=== PATIENT | female | born 1965 | race Two or more races ===

== ENCOUNTER → 2022-12-23 09:58 | Outpatient (BNVA) | payer OTHER, SELFPAY | PROVIDERS: PCP Pediatrics; Visit Provider Internal Medicine Rheumatology | DX: M25.561 Pain in right knee (principal); M25.562 Pain in left knee; M19.041 Primary osteoarthritis, right hand; M79.641 Pain in right hand; M19.042 Primary osteoarthritis, left hand; M79.642 Pain in left hand; M79.7 Fibromyalgia | CPT/HCPCS: 99202 ==

== ENCOUNTER 2022-12-23 11:38 | Outpatient (REF) | payer OTHER, SELFPAY ==
--- NOTE | ~2022-12-23 | XR_ITS ---
EXAMINATION: XR knee RT 3V, XR knee LT 3V CLINICAL INFORMATION: Reason for Exam M25.561 - Pain in right knee COMPARISON: None available at the time of this dictation. TECHNIQUE: frontal, lateral, tunnel and patella sunrise views FINDINGS: BONES: No fracture or dislocation is present. JOINTS: Mild Narrowing of joint spaces suggest degenerative osteoarthritis. SOFT TISSUE: Normal XR/XR knee RT 3V IMPRESSION: Mild bilateral tricompartment degenerative osteoarthritis. No knee joint effusions.
--- NOTE | ~2022-12-23 | XR_ITS ---
EXAMINATION: XR knee RT 3V, XR knee LT 3V CLINICAL INFORMATION: Reason for Exam M25.561 - Pain in right knee COMPARISON: None available at the time of this dictation. TECHNIQUE: frontal, lateral, tunnel and patella sunrise views FINDINGS: BONES: No fracture or dislocation is present. JOINTS: Mild Narrowing of joint spaces suggest degenerative osteoarthritis. SOFT TISSUE: Normal XR/XR knee LT 3V IMPRESSION: Mild bilateral tricompartment degenerative osteoarthritis. No knee joint effusions.
[2022-12-23 14:00] LABS: C Reactive Protein 0.48 mg/dL (< or = 0.50)
[2022-12-23 14:06] LABS: Thyroid Stimulating Hormone 1.24 uIU/mL (0.32-4.0)
[2022-12-23 14:22] LABS: Erythrocyte Sedimentation Rate 6 MM/HR (0-20)
== END 2022-12-23 11:39 | disposition home or self-care (01) ==
LOC: HO.10HDL 11:38
PROVIDERS: Visit Provider Internal Medicine Rheumatology
DX: M25.561 Pain in right knee (principal); M25.562 Pain in left knee; M19.041 Primary osteoarthritis, right hand; M19.042 Primary osteoarthritis, left hand; M79.7 Fibromyalgia
CPT/HCPCS: 36415; 73130; 73562; 84443; 85652; 86140

== ENCOUNTER 2023-02-21 10:00 | Outpatient (RCR) | payer OTHER, SELFPAY ==
--- NOTE | 2023-01-17 14:33 | MHC.PT.EP ---
[facility] [place] Office [place] Office [place] Office [address] [phone] F: [phone] F: [phone] F: [phone] F: [phone] Physical Therapy Plan of Care Date of Evaluation: Date of Surgery: Diagnosis: DOMINIC KNEE PAIN Assessment: 57 YO FEMALE REF TO PT WITH DOMINIC KNEE PAIN- SHE NOTES SHE IS BEING PROACTIVE TO ADDRESS KNEE STRENGTH, LEARN APPROPRIATE EXER, AND PREVENT FUTURE KNEE PROBLEMS. 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 OBJECTIVE FINDINGS: DECR HIP FLEXIB Lt > Rt, (+) LATERAL RETINACUALR TISSUE TENSION W LATERAL DRIFT, STRENGTH DEFICITS IN QUADS/ PROX LEs /LUMBOPELVIC REGION, AND PAIN W PALP LATERAL Jt LINE DOMINIC KNEES. FUNCTIONALLY, THE Pt HAS DECR CHRIS TO STAIR NAVIGATION, TRANSITIONAL MVMTS, BENDING. SQUATTING, KNEELING -> STANDING UP, AND ALTERED SLEEP DUE TO KNEE PAIN. THE Pt WOULD BENEFIT FROM PT TO DEV A HEP, ADDRESS FLEXIBILITY AND MORE EFFICIENT GAIT MECH ON LEVEL GROUND AND STAIRS, WELL FLOOT <-> STAND MECHANICS. Frequency and Duration: The patient will be seen 2 x WK x 6 WKS Short Term Goals: *Pt INDEP SELF CORRECT POSTURE AND DEMON WFL SQUAT MECH *DOMINIC KNEE PAIN DECR TO 2-3/10 *INCR FLEXIB IN PSOAS/ CALF MM TO IMPROVE EFFICIENCY OF GAIT ON LEVEL AND STAIRS Cylinder Machine Operator Goals: Pt INDEP W HEP PROGRESSION AND SELF-SX MGMT STRATEGIES Pt RESUME REG ADLs EVIDENT W IMPROVED LEFI SCORE (AT EVAL 46/80) Pt INCR DOMINIC LEs STRENGTH BY 1 GRADE *Pt DEMON INDEP KNEELING<-> STANDING MECHANICS Treatment Plan: Modalities to reduce pain, spasms and effusion. Manual therapy to restore motion and function. Therapeutic exercise to improve strength and flexibility. Neuromuscular re-education for posture and balance. Therapeutic activities to return to functional activities of daily living. Electronically signed by: ELDON LOFTON,PT Please sign and return to therapist. Thank you for your referral.
--- NOTE | 2023-04-08 14:11 | MHC.PT.DC ---
[facility] [place] Office [place] Office [place] [facility] [address] 140 [facility] [phone] F: [phone] F: [phone] F: [phone] F: [phone] Physical Therapy Discharge Report Diagnosis: DOMINIC KNEE PAIN Date of Surgery: Date of Evaluation: 01/17/23 Date of Discharge: 04/08/23 Treatments to Date: 7 Cancellations to Date: 4 No Shows to Date: 0 Discharge Status: Improved Function Independent with HEP Patient Elected to Stop Discharge Summary: THE Pt HAS PROGRESSED IN PT-> HER LUMBOPELVIC/ PROX LEs STRENGTH HAS IMPROVED AND HER FUNCT MOB CHRIS INCREASED- THE Pt CANC HER LAST FEW APPTS AND THEREFORE A FORMAL REASSESSMENT WAS NOT PERF- SHE HAS A THOROUGH HEP. Electronically signed by: ELDON LOFTON,PT Please sign and return to therapist. Thank you for your referral.
== END 2023-04-08 14:12 | disposition home or self-care (01) ==
LOC: HO.PT 10:00
PROVIDERS: PCP Internal Medicine; Visit Provider Internal Medicine Rheumatology
DX: M25.561 Pain in right knee (principal); M25.562 Pain in left knee
CPT/HCPCS: 97110; 97140; 97162

== ENCOUNTER 2023-12-07 12:43 | Outpatient (REF) | payer OTHER, SELFPAY ==
[2023-12-07 14:37] LABS: MANUAL DIFF FLAG NO
[2023-12-07 15:22] LABS: Basophils Percent Auto 0.5 % (0-2); Eosinophils Absolute Auto 0.1 X10*3/uL (0.0-0.4); Eosinophils Percent Auto 1.5 % (0-4); Hematocrit 41.3 % (37.0-47.0); Hemoglobin 13.5 g/dl (12.0-16.0); Imm Gran Abs Auto 0.01 X10*3/uL (0.00-0.03); Imm Gran Pct Auto 0.2 % (0.0-0.4); Lymphocytes Absolute Auto 1.2 X10*3/uL (1.2-4.9); Mean Corpuscular HGB Conc 32.7 g/dl (31.0-35.0); Mean Corpuscular Hemoglobin 29.5 pg (27.0-33.0); Mean Corpuscular Volume 90.2 fL (80.0-98.0); Monocytes Absolute Auto 0.3 X10*3/uL (0.1-1.2); Monocytes Percent Auto 5.7 % (2-11); Neutrophils Absolute Auto 4.3 x10*3/uL (2.0-8.3); Neutrophils Percent Auto 72.1 % (45-73); Platelet Count 218 X10*3/uL (160-400); Red Blood Count 4.58 X10*6/uL (4.20-5.50); Red Cell Distribution Width 12.9 % (11.0-16.0)
[2023-12-07 15:56] LABS: Alanine Aminotransferase 18 U/L (0-31); Albumin Level 4.2 g/dL (3.5-5.0); Alkaline Phosphatase 96 U/L (39-117); Anion Gap 12 (12-20); Aspartate Amino Transferase 19 U/L (5-31); Bilirubin Total 0.5 mg/dL (0.0-1.0); Blood Urea Nitrogen 15 mg/dL (9-16); C Reactive Protein 0.56 mg/dL (< or = 0.50); Calcium 9.7 mg/dL (8.4-10.2); Carbon Dioxide 27 mmol/L (22-29); Chloride 106 mmol/L (96-108); Estimated Glomerular Filt Rate > 60; Glucose Random 95 mg/dL (60-115); Potassium 3.7 mmol/L (3.3-5.1); Sodium 141 mmol/L (135-145); Total Protein 7.2 g/dL (6.5-8.0)
[2023-12-07 16:00] LABS: Erythrocyte Sedimentation Rate 6 MM/HR (0-20); Rheumatoid Factor < 13.0 IU/mL (<15.0)
[2023-12-08 04:17] LABS: HBS Num1 154.83 mIU/mL (0-7.99); HBc Num1 0.13 S/CO (0.00-0.79); HBsAGNum1 0.25 S/CO (0.00-0.99); Hepatitis A Antibody IgM 0.17 Index (0-0.79); Hepatitis B Core Antibody Nonreactive (Nonreactive); Hepatitis B Surface Antigen Negative (Negative); ~HepC Num1 0.11 S/CO (0.00-0.79); ~Hepatitis A Antibody IgM Nonreactive (Nonreactive); ~Hepatitis B Surface Antibody REACTIVE (Nonreactive); ~Hepatitis C Antibody Nonreactive (Nonreactive)
[2023-12-09 12:38] LABS: Prot Elec - Albumin 4.3 g/dL (3.8-4.8); Prot Elec - Alpha1 0.3 g/dL (0.2-0.3); Prot Elec - Alpha2 0.6 g/dL (0.5-0.9); Prot Elec - Beta 1 0.4 g/dL (0.4-0.6); Prot Elec - Beta 2 0.4 g/dL (0.2-0.5)
[2023-12-09 15:43] LABS: Cyclic Citrullinated Peptide <16 UNITS
[2023-12-10 17:54] LABS: TS Negative Control Passed; TS Panel A 0; TS Panel B 0; TS Positive Control Passed; TSpotTB Negative (Negative)
[2023-12-11 17:29] LABS: HLA B27 Negative (Negative)
[2023-12-12 15:58] LABS: IgA 177 mg/dL (47-310); IgG 1200 mg/dL (600-1640); IgM 69 mg/dL (50-300)
== END 2023-12-07 12:44 | disposition home or self-care (01) ==
LOC: HO.LAB 12:43
PROVIDERS: PCP Internal Medicine; Visit Provider Student in an Organized Health Care Education/Training Program
DX: M06.09 Rheumatoid arthritis without rheumatoid factor, multiple sites (principal); M45.9 Ankylosing spondylitis of unspecified sites in spine; Z11.59 Encounter for screening for other viral diseases; Z11.7 Encounter for testing for latent tuberculosis infection; Z79.631 Long term (current) use of antimetabolite agent
CPT/HCPCS: 36415; 80053; 82784; 84165; 85025; 85652; 86140; 86200; 86334; 86431; 86481; 86704; 86706; 86709; 86803; 86812; 87340; 99212

== ENCOUNTER 2023-12-07 12:43 | Outpatient (AMB) | payer OTHER, SELFPAY ==
--- NOTE | 2023-12-07 13:26 | MHC.OFFVIS ---
Vital Signs 12/07/23 13:27 Height 5 ft 5 in Weight 208 lb 8.917 oz BMI 34.7 BP 126/74 Blood Pressure Location Rt brachial Position Sitting Pulse 73 Pulse Source Pulse Oximeter Pulse Oximetry (%) 98 Oxygen Delivery Method Room Air Intake Visit Reasons: Knee OA/CM Intake Note: Reports bl hand pain and swelling. Some ankle swelling Teletype Operator Required: No Accompanied by: Self / Same As Patient Allergies epinephrine Allergy (Intermediate, Verified 12/07/23 13:34) increased heart rate Sulfa (Sulfonamide Antibiotics) Allergy (Intermediate, Verified 12/07/23 13:34) Rash Medication List - Last Reconciled 12/07/23 by Cezar Bernardo MD ibuprofen 200 mg PO Q6H PRN HPI Comments Details: 58-year-old female who used to follow-up adequately with Dr. Coy for evaluation of possible rheumatoid arthritis. She has a strong family history of rheumatoid arthritis in her mother and sister. She states that over the last year she has been having more frequent and significant swelling and pain of her hands and ankles. Morning stiffness of her hands lasts until dinnertime. She takes ibuprofen 400 mg twice a week with some relief. She denies having any knee pain. It did improve with physical therapy. She denies any skin rashes. She has gained some weight over the last year. Most recent history by Dr. Coy's 12/2022: The patient presents for evaluation of multiple areas of pain. I had actually seen her about 13 years ago with major complaint of fatigue. There were joint pains at the time so overall the picture looked like she could have some fibromyalgia. She has had since then continued symptoms although they seem to be worse in the last year or 2. Areas of pain include the neck, shoulders, hands, lower back, lateral hips, knees and ankles. She thinks the hands are occasionally swollen although do not remain swollen. She also notes occasional ankle swelling. Since I had last seen her she has gained about 27 lb. She admits she has trouble losing weight although she has been trying to diet. She had some blood work last year that did not really show any significant abnormalities. She does take [id number]-wkg-ikoaoxe ibuprofen, 200 mg to 400 mg daily although not on most days. She has difficulty getting up out of a chair because of knee pain. She has difficulty going up or down stairs. [facility] Medical History (Updated 12/07/23 @ 14:18 by Cezar Bernardo MD) Seasonal rhinitis Seasonal allergic conjunctivitis Thyroid nodule Obesity Fatigue Bilateral leg edema Surgical History H/O mammogram Family History Mother Arthritis Father CVA (cerebral vascular accident) Maternal Grandmother Diabetes Sister Rheumatoid arthritis Brother Rheumatoid arthritis Social History Household Members: Spouse Household Members Other:: Daughter Alcohol intake: current Alcohol intake frequency: a few times a week Alcohol type: wine Patient Tobacco Use Status: Former Tobacco user Current occupational status: employed 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 Female Reproductive History Menstrual Total pregnancies: 2 Number of Living Children: 2 Review of Systems Const Reports weight gain Musc Reports arthralgias, Reports joint swelling and Reports stiffness Skin/Breast Denies rash Physical Exam Vital Signs: Last Vital Signs Pulse 73 12/07/23 13:27 BP 126/74 12/07/23 13:27 Pulse Ox 98 12/07/23 13:27 Oxygen Delivery Method Room Air 12/07/23 13:27 BMI result Body Mass Index 34.7 Const General: cooperative, healthy appearing and comfortable Nutritional Appearance: obese Orientation/consciousness: patient oriented x3 Limitations: no limitations HEENT Head: Yes normocephalic and Yes atraumatic Mouth: moist mucous membranes Resp Effort & Inspection: normal respiratory effort and able to speak in complete sentences Auscultation: clear to auscultation bilaterally Cardio Rate: regular rate Rhythm: regular rhythm Skin General skin exam: no rashes or lesions noted Neuro General: patient oriented x3 Extrem Other: No wrist tenderness with full flexion and extension Significant bilateral hand swelling Bilateral diffuse extensor tendon tenderness Bilateral diffuse flexor tendon tenderness Bilateral diffuse 1st through 5th MCP, PIP and DIP tenderness Bilateral ankle swelling and tenderness Bilateral 2nd through 5th MTP tenderness No knee pain with full flexion-extension Normal nailfold capillaroscopy Normal range of motion of elbows and shoulders without pain Results Reviewed Results Reviewed: Lab work from [place]: February 2021: Hemoglobin 14.1, creatinine 0.65, transaminases normal the the October 2021: Rheumatoid factor negative, Lyme disease antibody negative, CRP 0.57, ESR 10, uric acid 4.7, MARCO ANTONIO negative Assessment & Plan Assessment & Plan (1) Rheumatoid arthritis: Code(s): M06.9 - Rheumatoid arthritis, unspecified Category: Medical Qualifiers: Rheumatoid arthritis location: multiple sites Rheumatoid factor presence: without rheumatoid factor Qualified Code(s): M06.09 - Rheumatoid arthritis without rheumatoid factor, multiple sites Plan: This is a 58-year-old female who used to follow-up periodically with Dr. Coy due to strong family history of RA. Over the last year patient has been having more pain, swelling and stiffness of her hands, ankles. On exam she has few synovitis. She has developed inflammatory arthritis, likely seronegative RA, however we will need to check anti CCP antibody. Discussed RA diagnosis and its management. Check labs today Start methotrexate 15 mg weekly for 2 weeks then 20 mg once weekly Start folic acid 1 mg daily. 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 Patient consumes 1 or 2 alcoholic beverages weekly Plan I spent 30 minutes reviewing patient's chart, evaluating patient, ordering diagnostic workup, counseling patient and documenting in the chart Orders: Orders Complete Blood Count Auto Diff Today M06.9 - Rheumatoid arthritis, unspecified C Reactive Protein Today M06.9 - Rheumatoid arthritis, unspecified Erythrocyte Sedimentation Rate Today M06.9 - Rheumatoid arthritis, unspecified HLA B27 Today M45.9 - Ankylosing spondylitis of unspecified sites in spine Complete Blood Count Auto Diff 2 Months Z79.631 - intermediate (current) use of antimetabolite agent C Reactive Protein 2 Months Z79.631 - intermediate (current) use of antimetabolite agent Erythrocyte Sedimentation Rate 2 Months Z79.631 - intermediate (current) use of antimetabolite agent Comprehensive Met. Panel Today M06.9 - Rheumatoid arthritis, unspecified Immunofixation Pnl, Serum Today M06.9 - Rheumatoid arthritis, unspecified Protein Electrophoresis, Serum Today M06.9 - Rheumatoid arthritis, unspecified Hepatitis A,B,C Profile Today Z11.59 - Encounter for screening for other viral diseases T Spot TB Today Z11.7 - Encounter for testing for latent tuberculosis infection Cyclic Citrullinated Peptide Today M06.9 - Rheumatoid arthritis, unspecified Rheumatoid Factor Today M06.9 - Rheumatoid arthritis, unspecified Comprehensive Met. 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
[2023-12-07 13:27] VITALS: BP 126/74; PULSE 73; O2SAT 98; BMI 34.7
== END 2023-12-07 14:13 | disposition home or self-care (01) ==
LOC: HO.RHE 12:43
PROVIDERS: PCP Internal Medicine; Visit Provider Student in an Organized Health Care Education/Training Program
DX: M06.09 Rheumatoid arthritis without rheumatoid factor, multiple sites (principal); Z79.631 Long term (current) use of antimetabolite agent
CPT/HCPCS: 99214

== ENCOUNTER 2024-02-06 14:30 | Outpatient (AMB) | payer OTHER, SELFPAY ==
[2024-02-06 14:43] VITALS: BP 120/68; PULSE 78; O2SAT 98; BMI 34.0
--- NOTE | 2024-02-06 14:43 | A.OFFVIS_ITS ---
Vital Signs 02/06/24 14:43 Height 5 ft 5 in Weight 204 lb 5.896 oz BMI 34.0 BP 120/68 Blood Pressure Location Lt brachial Position Sitting Pulse 78 Pulse Source Pulse Oximeter Pulse Oximetry (%) 98 Oxygen Delivery Method Room Air Intake Visit Reasons: RA/CM Intake Note: Patient is here today for follow up on RA. She was last seen on 12/07/2023. She is inqiring as if she should be taking Phentermene. Allergies epinephrine Allergy (Intermediate, Verified 02/06/24 14:49) increased heart rate Sulfa (Sulfonamide Antibiotics) Allergy (Intermediate, Verified 02/06/24 14:49) Rash Medication List - Last Reconciled 02/06/24 by Cezar Bernardo MD ibuprofen 200 mg PO Q6H PRN HPI Comments Details: 58-year-old female with newly diagnosed seronegative RA returns for follow-up. After last visit I prescribed methotrexate and folic acid. Patient looked up the list of side effects of methotrexate and decided not to take it. She states that she is on the medicine person. She states that she feels the same, continues to have morning stiffness lasting 1 hour, she takes Tylenol Arthritis daily. She is against using medications. She would like to try natural treatments Most recent history by Dr. Coy's 12/2022: The patient presents for evaluation of multiple areas of pain. I had actually seen her about 13 years ago with major complaint of fatigue. There were joint pains at the time so overall the picture looked like she could have some fibromyalgia. She has had since then continued symptoms although they seem to be worse in the last year or 2. Areas of pain include the neck, shoulders, hands, lower back, lateral hips, knees and ankles. She thinks the hands are occasionally swollen although do not remain swollen. She also notes occasional ankle swelling. Since I had last seen her she has gained about 27 lb. She admits she has trouble losing weight although she has been trying to diet. She had some blood work last year that did not really show any significant abnormalities. She does take kmoa-joz-gabyvlx ibuprofen, 200 mg to 400 mg daily although not on most days. She has difficulty getting up out of a chair because of knee pain. She has difficulty going up or down stairs. 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 Female Reproductive History Menstrual Total pregnancies: 2 Number of Living Children: 2 Review of Systems Const Reports weight gain Musc Reports arthralgias, Reports joint swelling and Reports stiffness Skin/Breast Denies rash Physical Exam Vital Signs: Last Vital Signs Pulse 78 02/06/24 14:43 BP 120/68 02/06/24 14:43 Pulse Ox 98 02/06/24 14:43 Oxygen Delivery Method Room Air 02/06/24 14:43 BMI result Body Mass Index 34.0 Const General: cooperative, healthy appearing and comfortable Nutritional Appearance: obese Orientation/consciousness: patient oriented x3 Limitations: no limitations HEENT Head: Yes normocephalic and Yes atraumatic Mouth: moist mucous membranes Resp Effort & Inspection: normal respiratory effort and able to speak in complete sentences Skin General skin exam: no rashes or lesions noted Neuro General: patient oriented x3 Extrem Other: Bilateral hand and wrist puffiness but swelling is overall less than last visit Assessment & Plan Assessment & Plan (1) Rheumatoid arthritis: Comment: -ve RF -ve CCP dx 11/2023 refused MTX Code(s): M06.9 - Rheumatoid arthritis, unspecified Category: Medical Qualifiers: Rheumatoid arthritis location: multiple sites Rheumatoid factor presence: without rheumatoid factor Qualified Code(s): M06.09 - Rheumatoid arthritis without rheumatoid factor, multiple sites Plan: This is a 58-year-old female with new onset seronegative RA presents for follow- up. After last visit I had prescribed methotrexate. Patient looked at the list of side effects and decided not to take it. She continues to feel the same, she continues to have intermittent pain and swelling of her fingers, morning stiffness lasting 1 hour. Patient would like to try natural treatments we discussed an anti-inflammatory diet, discussed turmeric, try taking 2000 mg of turmeric supplement daily. Can use Tylenol Arthritis daily. Use NSAIDs sparingly Follow-up in 4 months Plan I spent 16 minutes reviewing patient's chart, evaluating patient, counseling patient and documenting in the chart Coding Level of Care Code Est Pt Level 3 (93975) Diagnoses Rheumatoid arthritis of multiple sites with negative rheumatoid factor M06.09 Rheumatoid arthritis location: multiple sites Rheumatoid factor presence: without rheumatoid factor
== END 2024-02-06 15:18 | disposition home or self-care (01) ==
PROVIDERS: PCP Internal Medicine; Visit Provider Student in an Organized Health Care Education/Training Program
DX: M06.09 Rheumatoid arthritis without rheumatoid factor, multiple sites (principal)
CPT/HCPCS: 99213

== ENCOUNTER → 2024-02-06 14:30 | Outpatient (BNVA) | payer OTHER, SELFPAY | PROVIDERS: PCP Internal Medicine; Visit Provider Student in an Organized Health Care Education/Training Program | DX: R53.83 Other fatigue (principal); M06.09 Rheumatoid arthritis without rheumatoid factor, multiple sites | CPT/HCPCS: 99212 ==

== ENCOUNTER 2024-04-23 11:15 | Outpatient (REF) | payer OTHER, SELFPAY ==
[2024-04-23 13:23] LABS: MANUAL DIFF FLAG NO
[2024-04-23 13:36] LABS: Basophils Percent Auto 0.7 % (0-2); Eosinophils Absolute Auto 0.2 X10*3/uL (0.0-0.4); Eosinophils Percent Auto 2.7 % (0-4); Hematocrit 43.6 % (37.0-47.0); Hemoglobin 14.1 g/dl (12.0-16.0); Imm Gran Abs Auto 0.01 X10*3/uL (0.00-0.03); Imm Gran Pct Auto 0.2 % (0.0-0.4); Lymphocytes Absolute Auto 1.4 X10*3/uL (1.2-4.9); Lymphocytes Percent Auto 22.4 % (20-40); Mean Corpuscular HGB Conc 32.3 g/dl (31.0-35.0); Mean Corpuscular Volume 92.8 fL (80.0-98.0); Mean Platelet Volume 10.6 fL (9.4-12.3); Monocytes Absolute Auto 0.5 X10*3/uL (0.1-1.2); Monocytes Percent Auto 7.6 % (2-11); Neutrophils Percent Auto 66.4 % (45-73); Platelet Count 255 X10*3/uL (160-400)
[2024-04-23 14:31] LABS: Alanine Aminotransferase 184 U/L (0-31); Albumin Level 4.4 g/dL (3.5-5.0); Alkaline Phosphatase 139 U/L (39-117); Anion Gap 11 (12-20); Aspartate Amino Transferase 84 U/L (5-31); Bilirubin Total 0.5 mg/dL (0.0-1.0); Blood Urea Nitrogen 13 mg/dL (9-16); C Reactive Protein 0.44 mg/dL (< or = 0.50); Calcium 9.6 mg/dL (8.4-10.2); Carbon Dioxide 30 mmol/L (22-29); Chloride 104 mmol/L (96-108); Estimated Glomerular Filt Rate > 60; Glucose Random 90 mg/dL (60-115); Potassium 4.2 mmol/L (3.3-5.1); Sodium 141 mmol/L (135-145); Total Protein 7.3 g/dL (6.5-8.0)
[2024-04-23 14:33] LABS: Erythrocyte Sedimentation Rate 6 MM/HR (0-20)
== END 2024-04-23 11:16 | disposition home or self-care (01) ==
LOC: HO.10HDL 11:15
PROVIDERS: Visit Provider Student in an Organized Health Care Education/Training Program
DX: Z79.631 Long term (current) use of antimetabolite agent (principal)
CPT/HCPCS: 36415; 80053; 85025; 85652; 86140

== ENCOUNTER 2024-05-03 15:50 | Outpatient (AMB) | payer OTHER, SELFPAY ==
--- NOTE | 2024-05-03 16:08 | MHC.OFFVIS ---
Vital Signs 05/03/24 16:09 Height 5 ft 5 in Weight 205 lb 0.478 oz BMI 34.1 BP 120/68 Blood Pressure Location Lt brachial Position Sitting Pulse 83 Pulse Source Pulse Oximeter Pulse Oximetry (%) 98 Oxygen Delivery Method Room Air Intake Visit Reasons: RA/cm Intake Note: Patient presents for follow up on RA, and lab review and medication review. Allergies epinephrine Allergy (Intermediate, Verified 05/03/24 16:11) increased heart rate Sulfa (Sulfonamide Antibiotics) Allergy (Intermediate, Verified 05/03/24 16:11) Rash methotrexate Adverse Reaction (Intermediate, Verified 05/03/24 16:44) Transaminitis Medication List - Last Reconciled 05/03/24 by Cezar Bernardo MD ibuprofen 200 mg PO Q6H PRN HPI Comments Details: 58-year-old female with newly diagnosed seronegative RA returns for follow-up. She took methotrexate as prescribed for 2 months. She stated that the medication helped her quite a bit. The pain swelling and stiffness of her fingers was significantly improved. Morning stiffness improved. She was able to put her rings back on. She ran out about 2 weeks ago. Patient stated that methotrexate and folic acid gave her significant side effects such as significant nausea, GI upset. Most recent history by Dr. Coy's 12/2022: The patient presents for evaluation of multiple areas of pain. I had actually seen her about 13 years ago with major complaint of fatigue. There were joint pains at the time so overall the picture looked like she could have some fibromyalgia. She has had since then continued symptoms although they seem to be worse in the last year or 2. Areas of pain include the neck, shoulders, hands, lower back, lateral hips, knees and ankles. She thinks the hands are occasionally swollen although do not remain swollen. She also notes occasional ankle swelling. Since I had last seen her she has gained about 27 lb. She admits she has trouble losing weight although she has been trying to diet. She had some blood work last year that did not really show any significant abnormalities. She does take ifdq-jtg-qjucbaz ibuprofen, 200 mg to 400 mg daily although not on most days. She has difficulty getting up out of a chair because of knee pain. She has difficulty going up or down stairs. REPLACED BY [facility] Medical History Seasonal rhinitis Seasonal allergic conjunctivitis Thyroid nodule Obesity Fatigue Bilateral leg edema Surgical History H/O mammogram Family History Mother Arthritis Father CVA (cerebral vascular accident) Maternal Grandmother Diabetes Sister Rheumatoid arthritis Brother Rheumatoid arthritis Social History Household Members: Spouse Household Members Other:: Daughter Alcohol intake: current Alcohol intake frequency: a few times a week Alcohol type: wine Patient Tobacco Use Status: Former Tobacco user Current occupational status: employed 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 Female Reproductive History Menstrual Total pregnancies: 2 Number of Living Children: 2 Review of Systems Musc Reports arthralgias, Reports joint swelling and Reports stiffness Physical Exam Vital Signs: Last Vital Signs Pulse 83 05/03/24 16:09 BP 120/68 05/03/24 16:09 Pulse Ox 98 05/03/24 16:09 Oxygen Delivery Method Room Air 05/03/24 16:09 BMI result Body Mass Index 34.1 Const General: cooperative, healthy appearing and comfortable Nutritional Appearance: obese Orientation/consciousness: patient oriented x3 Limitations: no limitations HEENT Head: Yes normocephalic and Yes atraumatic Mouth: moist mucous membranes Resp Effort & Inspection: normal respiratory effort and able to speak in complete sentences Skin General skin exam: no rashes or lesions noted Neuro General: patient oriented x3 Extrem Other: Bilateral wrist tenderness and pain with full flexion and extension Bilateral MCP puffiness Positive MCP squeeze test bilaterally Few tender PIPs bilaterally Results Reviewed Results Reviewed: Lab work from [place]: February 2021: Hemoglobin 14.1, creatinine 0.65, October 2021: Rheumatoid factor negative, Lyme disease antibody negative, CRP 0.57, ESR 10, uric acid 4.7, MARCO ANTONIO negative Assessment & Plan Assessment & Plan (1) Rheumatoid arthritis: Comment: -ve RF -ve CCP dx 11/2023 MTX started 02/2024. DC 04/2024 due to significant MTX flu and transaminitis Code(s): M06.9 - Rheumatoid arthritis, unspecified Category: Medical Qualifiers: Rheumatoid arthritis location: multiple sites Rheumatoid factor presence: without rheumatoid factor Qualified Code(s): M06.09 - Rheumatoid arthritis without rheumatoid factor, multiple sites Plan: This is a 58-year-old female with new onset seronegative RA presents for follow-up. Patient took methotrexate as prescribed for about 2 months with noticeable improvement. Patient could not tolerate it due to significant MTX flu symptoms labs showed transaminitis. Discontinue methotrexate Discussed risks and benefits of TNF inhibitors. Patient is concerned about side effect especially given that her sister has skin cancer that spread to her lungs and brain. Discussed risks and benefits of hydroxychloroquine. Patient agreed to proceed. 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 Advised patient to make an appointment with cooking casing and drying supervisor Plan I spent 24 minutes reviewing patient's chart, evaluating patient, ordering diagnostic workup, counseling patient and documenting in the chart Orders: Orders Complete Blood Count Auto Diff 3 Months M06.09 - Rheumatoid arthritis without rheumatoid factor, multiple sites Comprehensive Met. Panel 3 Months M06.09 - Rheumatoid arthritis without rheumatoid factor, multiple sites C Reactive Protein 3 Months M06.09 - Rheumatoid arthritis without rheumatoid factor, multiple sites Erythrocyte Sedimentation Rate 3 Months M06.09 - Rheumatoid arthritis without rheumatoid factor, multiple sites Medications: New hydroxychloroquine 200 mg PO BID 60 tabs 2RF Coding Level of Care Code Est Pt Level 4 (91017) Diagnoses Rheumatoid arthritis of multiple sites with negative rheumatoid factor M06.09 Rheumatoid arthritis location: multiple sites Rheumatoid factor presence: without rheumatoid factor Long-term use of hydroxychloroquine Z79.899
[2024-05-03 16:09] VITALS: BP 120/68; PULSE 83; O2SAT 98; BMI 34.1
== END 2024-05-03 16:34 | disposition home or self-care (01) ==
LOC: HO.RHE 15:50
PROVIDERS: PCP Internal Medicine; Visit Provider Student in an Organized Health Care Education/Training Program
DX: M06.09 Rheumatoid arthritis without rheumatoid factor, multiple sites (principal); Z79.899 Other long term (current) drug therapy
CPT/HCPCS: 99214

== ENCOUNTER → 2024-05-03 15:50 | Outpatient (BNVA) | payer OTHER, SELFPAY | PROVIDERS: PCP Internal Medicine; Visit Provider Student in an Organized Health Care Education/Training Program | DX: M06.09 Rheumatoid arthritis without rheumatoid factor, multiple sites (principal); Z79.899 Other long term (current) drug therapy | CPT/HCPCS: 99212 ==

== ENCOUNTER 2024-08-02 14:49 | Outpatient (AMB) | payer OTHER, SELFPAY ==
--- NOTE | 2024-08-02 14:51 | A.OFFVIS_ITS ---
Vital Signs 08/02/24 14:56 Height 5 ft 5 in Weight 208 lb 5.389 oz BMI 34.7 BP 115/70 Blood Pressure Location Rt brachial Position Sitting Pulse 83 Pulse Source Pulse Oximeter Pulse Oximetry (%) 97 Oxygen Delivery Method Room Air Intake Visit Reasons: RA Intake Note: Patient presents for RA. Allergies epinephrine Allergy (Intermediate, Verified 08/02/24 14:55) increased heart rate Sulfa (Sulfonamide Antibiotics) Allergy (Intermediate, Verified 08/02/24 14:55) Rash methotrexate Adverse Reaction (Intermediate, Verified 08/02/24 14:55) Transaminitis Medication List - Last Reconciled 08/02/24 by Nayely Rodriguez MD ibuprofen 200 mg PO Q6H PRN HPI Comments Details: Patient is a 58-year-old female with no significant past medical history who presents for follow up of seronegative rheumatoid arthritis. Interval History: Patient last seen 05/03/[address] Bernardo. At that time she was having a flare of her syrup negative rheumatoid arthritis and she was started on Pl aquenil however patient did not take the medication because the provider was leaving and she wanted to follow up with her new provider Today, Patient reports prolonged morning stiffness and swelling to her hands and overall achiness to her joints. Rheumatologic History: Patient diagnosed with rheumatoid arthritis 11/2023. MTX started 02/2024. DC 04/2024 due to significant MTX flu and transaminitis Current Rheumatology Medication(s): [facility], [facility] Medical History (Updated 08/02/24 @ 15:23 by Nayely Rodriguez MD) Encounter for monitoring leflunomide therapy Seasonal rhinitis Seasonal allergic conjunctivitis Thyroid nodule Obesity Fatigue Bilateral leg edema Surgical History H/O mammogram Family History Mother Arthritis Father CVA (cerebral vascular accident) Maternal Grandmother Diabetes Sister Rheumatoid arthritis Brother Rheumatoid arthritis Social History Household Members: Spouse Household Members Other:: Daughter Alcohol intake: current Alcohol intake frequency: a few times a week Alcohol type: wine Patient Tobacco Use Status: Former Tobacco user Current occupational status: employed 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 Review of Systems Const Details: Review of Systems Constitutional: Denies fever, chills, weight loss ENT: Denies vision changes, eye pain or eye redness, dental caries, dry mouth GI: Denies nausea, vomiting, diarrhea, abdominal pain, change in BM Pulm: Denies SOB, LEWIS, hemoptysis, wheezing Cards: Denies chest pain, palpitations Skin: Denies Raynaud's, rash, nail changes, photosensitivity, SALES OUTFITTER: Denies headaches, weakness, paresthesias, recurrent falls MSK: as per HPI All other systems reviewed and are unremarkable except noted above Physical Exam Vital Signs: Last Vital Signs Pulse 83 08/02/24 14:56 BP 115/70 08/02/24 14:56 Pulse Ox 97 08/02/24 14:56 Oxygen Delivery Method Room Air 08/02/24 14:56 BMI result Body Mass Index 34.7 Vital signs reviewed Physical Examination CONSTITUITIONAL Patient alert and cooperative. Well appearing and in no apparent painful distress HEENT Conjunctiva and sclera clear. ?Pupils equal round and reactive to light. ?No lymphadenopathy. ? CHEST/RESPIRATORY SYSTEM Normal respiratory effort and able to speak in complete sentences. ?Clear to auscultation bilaterally. ?No crackles, rales, rhonchi, wheezes heard. CARDIAC SYSTEM Regular rate and rhythm. ?S1 and S2 heard no murmurs. ?Radial pulses intact bilaterally MSK Hands: ?Good cheese maker strength bilaterally. Synovitis noted to the MCPs and PIPs of bilateral hands. With swelling. Wrists: ?Full range of motion at the wrists without pain. ?No tenderness to palpation or synovitis noted to the wrists. Elbows: Full range of motion without pain. No tenderness, weakness, swelling, increased warmth or erythema. Shoulders: Full range of motion without pain. No tenderness, weakness, swelling, increased warmth or erythema. Hips: Full range of motion without pain. Hip bursa: No tenderness to palpation Knees: ?Full range of motion. ?No tenderness, swelling, increased warmth or erythema.?No effusion or crepitations Ankles: Full range of motion. ?No tenderness, swelling, increased warmth or erythema.? Feet: ?Negative squeeze test. ?No tenderness to palpation or swelling of the MTPs. Tender points:?No tenderness to palpation of the bilateral trapezius, supraspinatus, greater trochanters, anterior costochondral junctions, bilateral gluteal areas, bilateral suboccipital muscle insertions SKIN Skin intact without rashes. Results Reviewed Results Reviewed: Laboratory Tests 12/07/23 04/23/24 14:34 11:20 WBC 6.0 6.0 RBC 4.58 4.70 Hgb 13.5 14.1 Hct 41.3 43.6 Plt Count 218 255 ESR 6 6 Sodium 141 141 Potassium 3.7 4.2 Chloride 106 104 Carbon Dioxide 27 30 H BUN 15 13 Creatinine 0.76 0.77 Calcium 9.7 9.6 Total Bilirubin 0.5 0.5 AST 19 84 H ALT 18 184 H Alkaline Phosphatase 96 139 H C-Reactive Protein 0.56 H 0.44 Total Protein 7.2 7.3 Rheumatoid Factor < 13.0 Cycl Citrul Peptide IgG <16 HLA-B27 Negative Hepatitis A IgM Ab Nonreactive Hep Bs Antigen Negative Hep Bs Antibody REACTIVE Hep B Core Total Ab Nonreactive Hepatitis C Ab (EIA) Nonreactive TB Test (T-Spot) Com Negative Assessment & Plan Assessment & Plan (1) Rheumatoid arthritis: Comment: -ve RF -ve CCP dx 11/2023 MTX started 02/2024. DC 04/2024 due to significant MTX flu and transaminitis Code(s): M06.9 - Rheumatoid arthritis, unspecified Category: Medical Qualifiers: Rheumatoid arthritis location: multiple sites Rheumatoid factor presence: without rheumatoid factor Qualified Code(s): M06.09 - Rheumatoid arthritis without rheumatoid factor, multiple sites Plan: #Seronegative RA Patient is a 58-year-old female with no significant past medical history seronegative rheumatoid arthritis. Patient is currently in a flare of her disease on a background of not being on any medication. Patient reported improvement while on the methotrexate however the side effects were so significant she had to stop it. We will try leflunomide 10 mg Plan - Leflunomide 10mg - RTC 4 months - Labs prior to visit: CBC, CMP, ESR, CRP, hepatitis panel, T spot (2) Encounter for monitoring leflunomide therapy: Code(s): Z51.81 - Encounter for therapeutic drug level monitoring; Z79.69 - senior living (current) use of other immunomodulators and immunosuppressants Category: Medical Plan: #Long-term leflunomide Discussed with patient the benefits and risks of leflunomide for managing the rheumatic condition Benefits include: - Reduced pain, maintenance of remission and reduction of flares Risks include: - GI upset especially diarrhea, skin rash, cytopenias, hepatotoxicity, weight loss, neuropathy Initiation: ?CBC, BMP, LFTs, hepatitis-B and C serologies every 2-4 weeks for 3 months Monitoring: ?CBC, BMP, LFTs, hepatitis B and C serologies Plan I spent 30 minutes reviewing the record and labs, taking a history, examining the patient, discussing the treatment plan and documenting in the medical record Orders: Orders Comprehensive Met. Panel Today M06.09 - Rheumatoid arthritis without rheumatoid factor, multiple sites, Z51.81 - Encounter for therapeutic drug level monitoring, Z79.69 - long term care administrator (current) use of other immunomodulators and immunosuppressants C Reactive Protein Today M06.09 - Rheumatoid arthritis without rheumatoid factor, multiple sites, Z51.81 - Encounter for therapeutic drug level monitoring, Z79.69 - long term care administrator (current) use of other immunomodulators and immunosuppressants Erythrocyte Sedimentation Rate Today M06.09 - Rheumatoid arthritis without r heumatoid factor, multiple sites, Z51.81 - Encounter for therapeutic drug level monitoring, Z79.69 - long term care administrator (current) use of other immunomodulators and immunosuppressants Hepatitis A,B,C Profile Today M06.09 - Rheumatoid arthritis without rheumatoid factor, multiple sites, Z51.81 - Encounter for therapeutic drug level monitoring, Z79.69 - senior living (current) use of other immunomodulators and immunosuppressants T Spot TB Today M06.09 - Rheumatoid arthritis without rheumatoid factor, multiple sites, Z51.81 - Encounter for therapeutic drug level monitoring, Z79.69 - long term care administrator (current) use of other immunomodulators and immunosuppressants Complete Blood Count Auto Diff Today M06.09 - Rheumatoid arthritis without rheumatoid factor, multiple sites, Z51.81 - Encounter for therapeutic drug level monitoring, Z79.69 - senior living (current) use of other immunomodulators and immunosuppressants Medications: New leflunomide 10 mg PO DAILY 90 tabs 1RF M06.09 - Rheumatoid arthritis without rheumatoid factor, multiple sites Coding Level of Care Code Est Pt Level 4 (61433) Complex EM visit Add On G2211 Diagnoses Rheumatoid arthritis of multiple sites with negative rheumatoid factor M06. Rheumatoid arthritis location: multiple sites Rheumatoid factor presence: without rheumatoid factor Encounter for monitoring leflunomide therapy Z51.81; Z79.69
[2024-08-02 14:56] VITALS: BP 115/70; PULSE 83; O2SAT 97; BMI 34.7
--- OUTSIDE RECORDS SUMMARY | 2024-08-02 18:42 | XMS_ITS | Clinical Summary ---
Author Organization [facility] [employer] Address [address] [place] [address] Care Team Providers Care Magnetic Locater Name Role Phone Joy Vaca MD Primary Care Provider [phone] Allergies Active Allergy Reactions Criticality Noted Date Comments Sulfa (Sulfonamide Antibiotics) Other 07/04 Medications No known medications Active Problems No known active problems Encounters Date Type Department Care Team Description 05/30/2024 Telephone Adult Medicine [facility] [address] [place] [phone] Joy Vaca MD Call Back 05/28/2024 1:15 PM EST Office Visit Adult [address] [phone] Jeannette Osei MD Dysuria (Primary Dx) 05/28/2024 Telephone Adult [facility] [address] [place] [phone] Joy Vaca MD UTI; Abdominal Pain from Last 3 Months Immunizations Name Administration Dates Next Due Influenza trivalent, with pr eservative (Fluzone; Afluria) 6mo and older 05/07/2014 Td, Unspecified 10/11/2000 Tdap Tetanus diptheria acell ular pertussis (Boostrix; Adacel) 7yo and older 03/31/2015 Surgical History Surgery Date Site/Laterality Comments OTHER SURGICAL HISTORY 02/15 PROCEDURE: MAMMOGRAM Medical History Medical History Date Comments Fatigue 11/24/2010 DX:Fatigue Family History Medical History Relation Name Comments Diabetes Aunt Stroke Father -70s Diabetes Maternal Grandmother Arthritis Mother Arthritis Sister Relation Name Status Comments Aunt Father Maternal Grandmother Mother Alive Sister Alive Social History Tobacco Use Types Packs/Day Years Used Date Smoking Tobacco: Former Smokeless Tobacco: Never Tobacco Cessation:Counseling Given: Not Answered Alcohol Use Standard Drinks/Week Comments No 0 (1 standard drink = 0.6 oz pur e alcohol) Sex and Gender Information Value Date Recorded Sex Assigned at Not on file Gender Identity Not on file Sexual Orientation Not on file Job Start Date Occupation Industry Not on file Not on file Not on file Obstetrics History Last Filed Vital Signs Vital Sign Reading Time Taken Comments Blood Pressure 113/75 05/28/2024 1:09 PM EST Pulse 75 05/28/2024 1:09 PM EST Temperature 36.7 ??C (98 ??F) 05/28/2024 1:09 PM EST Respiratory Rate 16 05/28/2024 1:09 PM EST Oxygen Saturation - - Inhaled Oxygen Concentration - - Weight 91.9 kg (202 lb 9.6 oz) 05/28/2024 1:09 P M EST Height 165 cm (5' 4.96 ) 05/28/2024 1:09 PM EST Body Mass Index 33.75 05/28/2024 1:09 PM EST Plan of Treatment Upcoming Encounters Date Type Department Care Team (Late st Contact Info) Description 11/27/2024 11:30 AM EDT Office Visit Adult Medicine [facility] [address] [place] [phone] Joy Vaca MD [address] [place] [address] Health Maintenance Due Date Last Done Comments Breast Cancer Screening 1965 Zoster Vaccines (1 of 2) 2014 Cervical Cancer Screening: P ap Smear 12/16/2014 12/17/2011, 12/17/2011 Cholesterol Screening (Lipid Panel) 09/30/2020 01/14/2015 Colorectal Cancer Screening: Colonoscopy 09/30/2020 Depression Screening 09/30/2020 HIV Screening 09/30/2020 Social Influencers of Health Screening 09/30/2020 Hepatitis B Vaccines (2 of 3 - 19+ 3-dose series) 12/15/2022 11/17/2022 COVID-19 Vaccine ( - 2023-2 5 season) 2024 03/14/2021, 10/30/2020 Influenza Vaccine (#1) 2024 05/07/2014 DTaP,Tdap,and Td Vaccines (3 - Td or Tdap) 03/31/2025 03/31/2015, 10/11/2000 RSV Immunization Patients 60 + Years Old (1 - 1-dose 75+ series) 2039 Hepatitis C Screening Completed 11/06/2010 HIB Vaccines Aged Out No longer eligi ble based on patient's age to complete this topic HPV Vaccines Aged Out No longer eligi ble based on patient's age to complete this topic Hepatitis A Vaccines Aged Out No long er eligible based on patient's age to complete this topic IPV Vaccines Aged Out No longer eligi ble based on patient's age to complete this topic MMR Vaccines Aged Out No longer eligi ble based on patient's age to complete this topic Meningococcal ACWY Vaccine Aged Out N o longer eligible based on patient's age to complete this topic Pneumococcal Vaccine: Pediatrics (0 to 5 Years) and At-Risk Patients (6 to 64 Years) Aged Out No longer eligible b ased on patient's age to complete this topic RSV Immunization Patients Under 20 months Aged Out No longer eligible b ased on patient's age to complete this topic Varicella Vaccines Aged Out No longer eligible based on patient's age to complete this topic Procedures Procedure Name Priority Date/Time Associated Diagnosis Comments INMAN URINE CULTURE TUBE Routine 05/28/2024 1:44 PM EST Dysuria POC URINE NON-AUTO W/O MICRO Routine 05/28/2024 1:30 PM EST Dysuria LIPID PANEL Routine 01/14/2015 HM HPV Routine 12/17/2011 HEPATITIS C SCREENING Routine 11/06/2010 from Last 3 Months or Most Recently Relevant to Health Maintenance Results * Inman urine culture tube (05/28/2024 1:44 PM EST) Extra Tube Hold for add-ons. 05/28/2024 7:01 PM EST [facility] Comment:Auto resulted. Urine Urine specimen obtained by clean catch procedure / Unknown Non-blood Collection / Unknown 05/28/2024 1:44 PM EST 05/28/2024 1:45 PM EST Jeannette Osei MD LAB URINE [facility]OHA[facility] RUBIO [facility] [address] [place] [address], * (ABNORMAL) POC Urine Non-Auto W/O Micro (05/28/2024 1:30 PM EST) [facility] Leukocytes UA POC Negative Negative Comment:Moderate Nitrite UA POC Negative Negative Urobilinogen UA POC Negative Negative Protein UA POC Negative Negative PH UA POC 6.0 5.0 - 9.0 Blood UA POC Negative Negative, Trace Specific [facility] [place] UA POC 1.015 1.001 - 1.035 Ketones UA POC Negative Negative Bilirubin UA POC Negative(A) Negative Glucose UA POC Normal Normal, Trace Urine Urine specimen obtained by clean catch procedure / Unknown 05/28/2024 1:30 PM EST Jeannette Osei MD POINT OF CARE TEST ENTER/EDIT ORDERABLES * (ABNORMAL) Lipid panel (01/14/2015) [facility] LDL/HDL Ratio 3 0 - 4 Triglycerides 147 0 - 150 mg/dL Cholesterol 202(A) 0 - 200 mg/dL HDL 61 40 mg/dL LDL Cholesterol 112(A) 0 - 100 mg/dL Blood Venous blood specimen / Unknown Historical Provider LAB BLOOD ORDERAB LES * Cervical Cancer Screening: HPV (12/17/2011) [facility] Cervical Cancer Screening: HPV no interpretation , abstracted Historical Provider [facility] E * Hepatitis C Screening (11/06/2010) [facility] Hepatitis C Screening abstracted Historical Provider MD VIOLETTA Ervin from Last 3 Months or Most Recently Relevant to Health Maintenance Care Teams Magnetic Locater Relationship Specialty Start Date End Date Joy Vaca MD [facility] [place] [address] PCP - General Internal Medicine 09/29/20
== END 2024-08-02 15:25 | disposition home or self-care (01) ==
PROVIDERS: PCP Internal Medicine; Visit Provider Student in an Organized Health Care Education/Training Program
DX: M06.09 Rheumatoid arthritis without rheumatoid factor, multiple sites (principal); Z51.81 Encounter for therapeutic drug level monitoring; Z79.69 Long term (current) use of other immunomodulators and immunosuppressants
CPT/HCPCS: 99214; G2211